=== PATIENT | female | born 1980 | race Asian ===

== ENCOUNTER 2017-01-08 09:48 | Outpatient (CLI) | payer BC ==
[~2017-01-08 09:48] MED LIST: IRON325 MG PO; LABETALOL100 MG PO; PRENATAL1 T10 PO
== END 2017-01-08 19:21 | disposition home or self-care (01) ==
LOC: MRI 09:48
DX: M25.562 Pain in left knee (principal); M23.212 Derangement of anterior horn of medial meniscus due to old tear or injury, left knee

== ENCOUNTER 2018-07-25 09:20 | Emergency (ER) | payer OTHER ==
[~2018-07-25] VITALS: Ht 157.5 cm; Wt 111.1 kg
[2018-07-25 11:37] VITALS: BP 140/86; TEMP 98
== END 2018-07-25 11:39 | disposition home or self-care (01) ==
LOC: ED 09:20
PROC: 0RSWXZZ Reposition Right Finger Phalangeal Joint, External Approach (ICD-10-PCS; principal; 2018-07-25)
DX: S63.284A Dislocation of proximal interphalangeal joint of right ring finger, initial encounter (principal); W01.0XXA Fall on same level from slipping, tripping and stumbling without subsequent striking against object, initial encounter; Y92.098 Other place in other non-institutional residence as the place of occurrence of the external cause
CPT/HCPCS: 99282

== ENCOUNTER 2018-09-26 12:57 | Emergency (ER) | payer OTHER ==
[~2018-09-26] VITALS: Ht 157.5 cm; Wt 111.1 kg
[2018-09-26 13:05] VITALS: TEMP 99.9
[2018-09-26 14:59] VITALS: BP 149/88
== END 2018-09-26 15:00 | disposition home or self-care (01) ==
LOC: ED 12:57
DX: J11.1 Influenza due to unidentified influenza virus with other respiratory manifestations (principal); J02.0 Streptococcal pharyngitis
CPT/HCPCS: 81025; 87502; 87651; 96372; 99283; J0561

== ENCOUNTER 2018-11-07 14:16 | Outpatient (CLI) | payer OTHER | END 2018-11-07 20:22 | disposition home or self-care (01) | LOC: RAD 14:16 | DX: J45.41 Moderate persistent asthma with (acute) exacerbation (principal); R06.2 Wheezing ==

== ENCOUNTER 2019-02-02 14:40 | Outpatient (CLI) | payer OTHER | END 2019-02-02 21:39 | disposition home or self-care (01) | LOC: RAD 14:40 | DX: M25.561 Pain in right knee (principal) ==

== ENCOUNTER 2020-05-14 12:30 | Outpatient (CLI) | payer OTHER | END 2020-05-14 23:30 | disposition home or self-care (01) | LOC: RAD 12:30 | DX: M25.561 Pain in right knee (principal) ==

== ENCOUNTER 2020-10-31 12:31 | Outpatient (CLI) | payer OTHER | END 2020-10-31 23:11 | disposition home or self-care (01) | LOC: RAD 12:31 | PROVIDERS: ATTEND Physician Assistant | DX: M25.561 Pain in right knee (principal); M25.562 Pain in left knee ==

== ENCOUNTER 2021-04-21 13:21 | Outpatient (CLI) | payer OTHER | END 2021-04-21 20:19 | disposition home or self-care (01) | LOC: MAMMO 13:21 | PROVIDERS: ATTEND Nurse Practitioner Family | DX: Z12.31 Encounter for screening mammogram for malignant neoplasm of breast (principal) ==

== ENCOUNTER 2022-07-30 15:15 | Emergency (ER) | payer OTHER ==
[~2022-07-30] VITALS: Ht 157.5 cm; Wt 132.9 kg
[2022-07-30 15:32] VITALS: BP 148/86; TEMP 98.4
[2022-07-30 16:11] LABS: PLATELET COUNT 236 K/uL (152-353)
[2022-07-30 16:19] LABS: POTASSIUM 3.6 mmol/L (3.6-5.2); SODIUM 136 mmol/L (136-145)
[2022-07-30 16:28] LABS: PARTIAL THROMBOPLASTIN TIME 24.9 SECONDS (24.5-33.6)
== END 2022-07-30 17:10 | disposition home or self-care (01) ==
LOC: ED 15:15
PROVIDERS: Family Medicine
DX: R00.2 Palpitations (principal); T50.5X5A Adverse effect of appetite depressants, initial encounter; I10 Essential (primary) hypertension; X58.XXXA Exposure to other specified factors, initial encounter; Y92.89 Other specified places as the place of occurrence of the external cause
CPT/HCPCS: 80053; 80307; 81002; 82550; 84484; 85027; 85610; 85730; 93005; 99283

== ENCOUNTER 2023-04-15 17:36 | Emergency (ER) | payer OTHER ==
[~2023-04-15] VITALS: Ht 157.5 cm; Wt 132.5 kg
[2023-04-15 17:45] VITALS: TEMP 98.7
[2023-04-15 20:52] VITALS: BP 139/90
== END 2023-04-15 20:54 | disposition home or self-care (01) ==
LOC: ED 17:36
DX: U07.1 COVID-19 (principal); R06.02 Shortness of breath; R51.9 Headache, unspecified; R50.9 Fever, unspecified
CPT/HCPCS: 87635; 87651; 96372; 99283; J1100; U0003